=== PATIENT | female | born 1970 | race Caucasian/White ===

== ENCOUNTER → 2016-10-10 | Outpatient (REF) | payer OTHER ==
[2016-10-10 17:01] LABS: ALBUMIN 3.9 GM/DL (3.2-5.2); ALBUMIN/GLOBULIN RATIO 1.22 (1.00-1.93); ALKALINE PHOSPHATASE 106 U/L (45-117); ALT/SGPT 22 U/L (12-78); ANION GAP 6 MEQ/L (8-16); AST/SGOT 18 U/L (15-37); BILIRUBIN,TOTAL 0.4 MG/DL (0.2-1.0); BLOOD UREA NITROGEN 12 MG/DL (7-18); CALCIUM LEVEL 8.5 MG/DL (8.5-10.1); CARBON DIOXIDE LEVEL 30 MEQ/L (21-32); CHLORIDE LEVEL 107 MEQ/L (98-107); CHOLESTEROL LEVEL 177 MG/DL (<200); CREATININE FOR GFR 0.83 MG/DL (0.55-1.02); GLOMERULAR FILTRATION RATE > 60.0 (>58); GLUCOSE, FASTING 89 MG/DL (70-105); POTASSIUM SERUM 4.5 MEQ/L (3.5-5.1); SODIUM LEVEL 143 MEQ/L (136-145); TOTAL PROTEIN 7.1 GM/DL (6.4-8.2); TRIGLYCERIDES LEVEL 48 MG/DL (<150)
[2016-10-10 17:09] LABS: BASO % 0.8 % (0.0-1.0); EOS # 0.1 K/mm3 (0.0-0.50); EOS % 3.5 % (0.0-3.0); LARGE UNSTAINED CELL # 0.1 K/mm3 (0.0-0.4); LARGE UNSTAINED CELL % 2.1 % (0.0-4.0); LYMPH # 1.1 K/mm3 (1.5-4.5); LYMPH % 28.6 % (24.0-44.0); MEAN CORPUSCULAR HEMOGLOBIN 30.3 pg (27.0-33.0); MEAN CORPUSCULAR HGB CONC 32.5 g/dl (32.0-36.5); MONO # 0.2 K/mm3 (0.0-0.8); MONO % 5.3 % (0.0-5.0); NEUTROPHILS # 2.3 K/mm3 (1.8-7.7); NEUTROPHILS % 59.7 % (36.0-66.0); PLATELET COUNT, AUTOMATED 234 k/mm3 (150-450); RED CELL DISTRIBUTION WIDTH 11.8 % (11.5-14.5); WHITE BLOOD COUNT 3.8 K/mm3 (4.0-10.0)
== END ==
LOC: M LAB REF 12:23
PROVIDERS: ATTEND Family Medicine
DX: Z00.00 Encounter for general adult medical examination without abnormal findings (principal)

== ENCOUNTER → 2017-02-22 | Outpatient (CLI) | payer OTHER ==
--- NOTE | 2017-02-22 09:43 | REPMRS ---
Patient History The patient states she had a clinical breast exam in Patient is postmenopausal. No known family history of cancer. Digital Woman Screen Mammo: February 22, 2017 - Exam #: [id number] Bilateral CC and MLO view(s) were taken. Technologist: Edel Martinez, Technologist Prior study comparison: March 13, 2015, digital woman screen mammo performed at [facility]. FINDINGS: The breast tissue is heterogeneously dense. This may lower the sensitivity of mammography. There has been no change in the appearance of the mammogram from the prior studies. There is a moderate amount of residual fibroglandular tissue which is fairly symmetric. There is no interval development of dominant mass, architectural distortion, or clustered microcalcification typical of malignancy. There are scattered, small, benign calcifications of doubtful clinical significance. No significant changes when compared with prior studies. ASSESSMENT: BI-RADS/ACR category 2 mammogram. Benign finding(s). Recommendation Routine screening mammogram in 1 year (for women over age 40). This mammogram was interpreted with the aid of an FDA-approved computer-aided dectection system. A. Negative x-ray reports should not delay biopsy if a dominant or clinically suspicious mass is present. B. Four to eight percent of cancers are not identified by mammography. C. Adenosis and dense breast may obscure an underlying neoplasm. Electronically Signed By: Yuriy Dumas MD 02/22/17 0943
== END ==
LOC: M WHC 08:19
PROVIDERS: ATTEND Nurse Practitioner Women's Health
DX: Z12.31 Encounter for screening mammogram for malignant neoplasm of breast (principal); R92.8 Other abnormal and inconclusive findings on diagnostic imaging of breast; Z78.0 Asymptomatic menopausal state

== ENCOUNTER → 2017-06-07 | Outpatient (REF) | payer OTHER ==
[2017-06-07 13:39] LABS: FREE T4 1.5 NG/DL (0.76-1.46)
== END ==
LOC: M SFHCADAM 09:36
PROVIDERS: ATTEND Family Medicine
DX: F32.89 Other specified depressive episodes (principal)

== ENCOUNTER → 2017-10-29 | Outpatient (REF) | payer OTHER ==
[2017-10-29 12:50] LABS: ALBUMIN 3.7 GM/DL (3.2-5.2); ALBUMIN/GLOBULIN RATIO 1.09 (1.00-1.93); ALKALINE PHOSPHATASE 87 U/L (45-117); ALT/SGPT 22 U/L (12-78); ANION GAP 7 MEQ/L (8-16); AST/SGOT 19 U/L (7-37); BILIRUBIN,TOTAL 0.4 MG/DL (0.2-1.0); BLOOD UREA NITROGEN 13 MG/DL (7-18); CALCIUM LEVEL 8.5 MG/DL (8.5-10.1); CARBON DIOXIDE LEVEL 28 MEQ/L (21-32); CHLORIDE LEVEL 105 MEQ/L (98-107); CREATININE FOR GFR 0.77 MG/DL (0.55-1.30); FREE T4 1.25 NG/DL (0.76-1.46); GLOMERULAR FILTRATION RATE > 60.0 (>58); GLUCOSE, FASTING 74 MG/DL (70-100); POTASSIUM SERUM 3.7 MEQ/L (3.5-5.1); SODIUM LEVEL 140 MEQ/L (136-145); THYROID STIMULATING HORMONE 0.782 uIU/ML (0.358-3.740); TOTAL PROTEIN 7.1 GM/DL (6.4-8.2)
== END ==
LOC: M SFHCADAM 12:02
DX: Z00.00 Encounter for general adult medical examination without abnormal findings (principal)

== ENCOUNTER → 2017-12-13 | Outpatient (CLI) | payer OTHER | LOC: M RAD 14:28 | DX: N63.20 Unspecified lump in the left breast, unspecified quadrant (principal) | CPT/HCPCS: 77065 ==

== ENCOUNTER → 2018-05-24 | Outpatient (CLI) | payer OTHER | LOC: M RAD 15:46 | DX: N60.02 Solitary cyst of left breast (principal) | CPT/HCPCS: 76642 ==

== ENCOUNTER → 2019-02-09 | Outpatient (CLI) | payer OTHER ==
--- NOTE | 2019-02-09 10:50 | REP ---
Left knee five views: There are no comparisons. There is no fracture or dislocation. There is no joint effusion. The joint spaces are unremarkable. The skeletal structures appear demineralized, somewhat unusual for patient age. Consider bone densitometry study for confirmation. Impression: Essentially negative left knee except for demineralization, somewhat unusual for patient age. Consider bone densitometry for confirmation. Electronically Signed by Jericho Sanz MD 02/09/2019 10:42 A
== END ==
LOC: M ADAMS 09:36
PROVIDERS: ATTEND Family Medicine
DX: S89.92XD Unspecified injury of left lower leg, subsequent encounter (principal); X58.XXXD Exposure to other specified factors, subsequent encounter

== ENCOUNTER → 2019-03-07 | Outpatient (REF) | payer OTHER ==
[2019-03-07 12:33] LABS: BASO # 0.1 10^3/uL (0.0-0.2); EOS # 0.1 10^3/uL (0.0-0.50); EOS % 2.1 % (0.0-3.0); HEMOGLOBIN 12.4 g/dl (12.0-15.5); LYMPH # 1.4 10^3/uL (1.5-4.5); LYMPH % 29.1 % (24.0-44.0); MEAN CORPUSCULAR HEMOGLOBIN 30.6 pg (27.0-33.0); MEAN CORPUSCULAR HGB CONC 31.8 g/dl (32.0-36.5); MEAN CORPUSCULAR VOLUME 96.3 fl (80.0-96.0); MONO # 0.4 10^3/uL (0.0-0.8); MONO % 7.8 % (0.0-5.0); NEUTROPHILS # 2.9 10^3/uL (1.8-7.7); NEUTROPHILS % 59.8 % (36.0-66.0); PLATELET COUNT, AUTOMATED 235 10^3/uL (150-450); RED BLOOD COUNT 4.05 10^6/uL (4.00-5.40); WHITE BLOOD COUNT 4.8 10^3/uL (4.0-10.0)
[2019-03-07 12:52] LABS: ALBUMIN 3.6 GM/DL (3.2-5.2); ALT/SGPT 27 U/L (12-78); BILIRUBIN,TOTAL 0.4 MG/DL (0.2-1.0); BLOOD UREA NITROGEN 14 MG/DL (7-18); CARBON DIOXIDE LEVEL 28 MEQ/L (21-32); CHLORIDE LEVEL 106 MEQ/L (98-107); CHOLESTEROL LEVEL 194 MG/DL (<200); CHOLESTEROL RISK RATIO 3.129 (<5); CREATININE FOR GFR 0.77 MG/DL (0.55-1.30); GLOMERULAR FILTRATION RATE > 60.0 (>58); GLUCOSE, FASTING 83 MG/DL (70-100); HDL CHOLESTEROL 62 MG/DL (>40); LDL CHOLESTEROL 120 MG/DL (<100); NON-HDL-C 132 MG/DL; POTASSIUM SERUM 4.2 MEQ/L (3.5-5.1); SODIUM LEVEL 140 MEQ/L (136-145); TOTAL PROTEIN 6.9 GM/DL (6.4-8.2); TRIGLYCERIDES LEVEL 59 MG/DL (<150)
== END ==
LOC: M SFHCADAM 08:06
PROVIDERS: ATTEND Family Medicine
DX: Z00.00 Encounter for general adult medical examination without abnormal findings (principal)

== ENCOUNTER → 2019-03-30 | Outpatient (CLI) | payer OTHER ==
--- NOTE | 2019-03-31 08:30 | REP ---
MAXILLOFACIAL CT STUDY WITHOUT CONTRAST: HISTORY: Chronic maxillary sinusitis. No comparison imaging. FINDINGS: The sphenoid, ethmoid, frontal, and maxillary sinuses are bilaterally clear. No mucosal changes. Ostiomeatal complex units are patent bilaterally. Nasal turbinate soft tissues are unremarkable and symmetric. The bony nasal septum is essentially midline. No intraorbital or intracranial abnormality is seen. The nasal ethmoid recesses appear patent. Bony orbital and sinus margins are intact. Mastoid aeration is normal and symmetric. IMPRESSION: Negative maxillofacial CT study. Electronically Signed by Dannie Henderson MD 03/31/2019 08:40 A
== END ==
LOC: M RAD 17:00
PROVIDERS: ATTEND Specialist
DX: J32.0 Chronic maxillary sinusitis (principal)

== ENCOUNTER → 2019-04-01 | Outpatient (CLI) | payer OTHER ==
--- NOTE | 2019-04-03 12:21 | REP ---
MRA of the brain without contrast Indication: Tinnitus. Comparison: None Technique: 3D time of flight MR angiogram of the [place] was performed without contrast. MIP images of the vessels were obtained including tumble and spin MIP imaging. Findings: There is antegrade flow within the distal ICAs and proximal MCAs and ACAs, the distal vertebral arteries, basilar artery and proximal generator switchboard operator. There is no evidence of cerebrovascular occlusion or aneurysmal formation. Impression: No cerebrovascular occlusion or aneurysmal formation. Electronically Signed by Marguerite Carbajal MD 04/03/2019 09:21 A
== END ==
LOC: M RAD 10:36
PROVIDERS: ATTEND Specialist
DX: H93.A1 Pulsatile tinnitus, right ear (principal)

== ENCOUNTER 2020-08-25 19:08 | Emergency (ER) | payer OTHER ==
[~2020-08-25] VITALS: Ht 172.7 cm; Wt 72.1 kg
--- OUTSIDE RECORDS SUMMARY | 2020-08-25 19:15 | CCD ---
Author Author [facility] Organization [facility] Address Unknown Phone Unavailable Care Team Providers Care Fraud Manager Name Role Phone Crystal Zaidi Unavailable Unavailable Crystal Zaidi PA Unavailable Unavailable Crystal Zaidi PA Unavailable Unavailable Crystal Zaidi PA Unavailable Unavailable Crystal Zaidi PA Unavailable Unavailable ZaidiCrystal herrera PA Unavailable Unavailable Crystal Zaidi PA Unavailable Unavailable Crystal Zaidi PA Unavailable Unavailable Crystal Zaidi PA Unavailable Unavailable Crystal Zaidi PA Unavailable Unavailable Madina Akhtar MD Unavailable Unavailable Madina Akhtar MD Unavailable Unavailable Madina Akhtar MD Unavailable Unavailable Madina Akhtar MD Unavailable Unavailable Madina Akhtar MD Unavailable Unavailable Madina Akhtar MD Unavailable Unavailable Madina Akhtar MD Unavailable Unavailable Madina Akhtar MD Unavailable Unavailable Madina Akhtar MD Unavailable Unavailable Madina Akhtar MD Unavailable Unavailable Madina Akhtar MD Unavailable Unavailable Madina Akhtar MD Unavailable Unavailable Madina Akhtar MD Unavailable Unavailable Madina Akhtar MD Unavailable Unavailable Madina Akhtar MD Unavailable Unavailable Madina Akhtar MD Unavailable Unavailable Madina Akhtar MD Unavailable Unavailable Al Mudamgha, A Ali MD Unavailable Unavailable Al Mudamgha, A Ali MD Unavailable Unavailable Al Mudamgha, A Ali MD Unavailable Unavailable Al Mudamgha, A Ali MD Unavailable Unavailable Al Mudamgha, A Ali MD Unavailable Unavailable Al Mudamgha, A Ali MD Unavailable Unavailable Al Mudamgha, A Ali MD Unavailable Unavailable Al Mudamgha, A Ali MD Unavailable Unavailable Al Mudamgha, A Ali MD Unavailable Unavailable Al Mudamgha, A Ali MD Unavailable Unavailable Al Mudamgha, A Ali MD Unavailable Unavailable Al Mudamgha, A Ali MD Unavailable Unavailable Al Mudamgha, A Ali MD Unavailable Unavailable Al Mudamgha, A Ali MD Unavailable Unavailable Al Mudamgha, A Ali MD Unavailable Unavailable Al Mudamgha, A Ali MD Unavailable Unavailable Al Mudamgha, A Ali MD Unavailable Unavailable Al Mudamgha, A Ali MD Unavailable Unavailable Al Mudamgha, A Ali MD Unavailable Unavailable Al Mudamgha, A Ali MD Unavailable Unavailable Al Mudamgha, A Ali MD Unavailable Unavailable Al Mudamgha, A Ali MD Unavailable Unavailable Al Mudamgha, A Ali MD Unavailable Unavailable Al Mudamgha, A Ali MD Unavailable Unavailable Al Mudamgha, A Ali MD Unavailable Unavailable Al Mudamgha, A Ali MD Unavailable Unavailable Al Mudamgha, A Ali MD Unavailable Unavailable Al Mudamgha, A Ali MD Unavailable Unavailable Al Mudamgha, A Ali MD Unavailable Unavailable Al Mudamgha, A Ali MD Unavailable Unavailable Al Mudamgha, A Ali MD Unavailable Unavailable Al Mudamgha, A Ali MD Unavailable Unavailable Al Mudamgha, A Ali MD Unavailable Unavailable Al Mudamgha, A Ali MD Unavailable Unavailable Al Mudamgha, A Ali MD Unavailable Unavailable Al Mudamgha, A Ali MD Unavailable Unavailable Al Mudamgha, A Ali MD Unavailable Unavailable Al Mudamgha, A Ali MD Unavailable Unavailable Al Mudamgha, A Ali MD Unavailable Unavailable Al Mudamgha, A Ali MD Unavailable Unavailable Al Mudamgha, A Ali MD Unavailable Unavailable Al Mudamgha, A Ali MD Unavailable Unavailable Al Mudamgha, A Ali MD Unavailable Unavailable Al Mudamgha, A Ali MD Unavailable Unavailable Al Mudamgha, A Ali MD Unavailable Unavailable Al Mudamgha, A Ali MD Unavailable Unavailable Al Mudamgha, A Ali Unavailable Unavailable Al Mudamgha, A Ali MD Unavailable Unavailable Al Mudamgha, A Ali MD Unavailable Unavailable Al Mudamgha, A Ali MD Unavailable Unavailable Al Mudamgha, A Ali MD Unavailable Unavailable Al Mudamgha, A Ali MD Unavailable Unavailable Al Mudamgha, A Ali MD Unavailable Unavailable Al Mudamgha, A Ali MD Unavailable Unavailable Al Mudamgha, A Ali MD Unavailable Unavailable Al Mudamgha, A Ali MD Unavailable Unavailable Al Mudamgha, A Ali MD Unavailable Unavailable Al Mudamgha, A Ali MD Unavailable Unavailable Al Mudamgha, A Ali MD Unavailable Unavailable Al Mudamgha, A Ali MD Unavailable Unavailable Al Mudamgha, A Ali MD Unavailable Unavailable Al Mudamgha, A Ali MD Unavailable Unavailable Al Mudamgha, A Ali MD Unavailable Unavailable Re-disclosure Warning The records that you are about to access may contain information from federally-assisted alcohol or drug abuse programs. If such information is present, then the following federally mandated warning applies: This information has been disclosed to you from records protected by federal confidentiality rules (42 CFR part 2). The federal rules prohibit you from making any further disclosure of this information unless further disclosure is expressly permitted by the written consent of the person to whom it pertains or as otherwise permitted by 42 CFR part 2. A general authorization for the release of medical or other information is NOT sufficient for this purpose. The Federal rules restrict any use of the information to criminally investigate or prosecute any alcohol or drug abuse patient.The records that you are about to access may contain highly sensitive health information, the redisclosure of which is protected by Article 27-F of the [facility] Public Health law. If you continue you may have access to information: Regarding HIV / AIDS; Provided by facilities licensed or operated by the [facility] Office of Mental Health; or Provided by the [facility] Office for People With Developmental Disabilities. If such information is present, then the following [facility] mandated warning applies: This information has been disclosed to you from confidential records which are protected by state law. State law prohibits you from making any further disclosure of this information without the specific written consent of the person to whom it pertains, or as otherwise permitted by law. Any unauthorized further disclosure in violation of state law may result in a fine or usp sentence or both. A general authorization for the release of medical or other information is NOT sufficient authorization for further disc losure. Family History Family Member Name Family Member Gender Family Member Status Date o f Status Description Data Source(s) Unknown Unknown Problem [facility] ([facility]) Unknown Unknown Problem [facility] ([employer] [employer]) Encounters Encounter Providers Location Date Indications Data Source(s ) Outpatient Attender: Rajeev Akhtar MDAdmitter: Rajeev Turner MD ES1-[id number].CVAU 08/02/2020 09:53:00 AM EST - 08/02/2020 05:13:00 PM [facility] Patient discharged. Outpatient Referrer: Rajeev Akhtar MD MOB-MOB.PAT 10/2020 09:05:47 AM [facility] - 07/29/2020 09:05:50 AM [facility] Outpatient Attender: Rajeev Akhtar MD BF-BF 07/03/2020 07:36:0 2 AM [facility] Outpatient [id number] 06/25/2020 11:01:38 AM [facility] Outpatient Attender: Pam black 03/26/2020 07:30:00 PM EDT [facility] ([facility] Outpatient [facility] [address] 02/05/2020 12:00:00 AM EDT eCW1 ([facility]) [address] [address] 2019 12:00:00 AM EDT eCW1 ([facility]) [address] [address] 09/04/2019 12:00:00 AM EST eCW1 ([facility]) [address] [address] 08/03/2019 12:00:00 AM EST eCW1 ([facility]) Medications Medication Brand Name Start Date Product Form Dose Route Admi nistrative Instructions Pharmacy Instructions Status Indications Reaction Description Data Source(s) normal saline flush 0.9 % injection 3 mL [id number] 08/02/2020 02:00:00 PM EST 3 mL Intravenous active 3 mL , Intravenous, Every 8 hours (scheduled), First dose on Wed08/02/20 at 1400, Pre-op
Rapid push positive pressure flushing shall be performed with a 10 cc normal saline syringe to check the PATENCY of a PIV site prior to any infusion therapy initiation unless resistance is met.
[facility] Medication administered onsite Acetaminophen 325 MG Oral Tablet acetaminophen (TYLENO L) 325 MG tablet 650 mg acetaminophen (TYLENOL) 325 MG tablet 650 mg 08/02/2020 01:15:35 PM EST 650 mg Oral active 650 mg, Or al, Every 4 hours PRN, mild pain (1-3), Starting Wed08/02/20 at 1315
"Maximum dose of acetaminophen is 4,000 mg from all sources in 24 hours."
[facility] Medication administered onsite ondansetron (ZOFRAN) injection 63537-247-29 08/02/2020 12:25:01 PM EST active As needed, Starting Wed at 1225, Intra-Procedure [facility] Medication administered onsite protamine injection [id number] 08/02/2020 12:13:09 PM EST active As needed, Starting Wed08/02/20 at 1213, Intra-Procedur e [facility] Medication administered onsite 1 ML heparin sodium, porcine 1000 UNT/ML Injection hep tiki (porcine) injection heparin (porcine) injection 08/02/2020 11:30:41 AM EST active As needed, Starting Wed08/02/20 at 1130, Intra-Procedure [facility] Medication administered onsite lidocaine (PF) (XYLOCAINE-MPF) 1 % injection [id number] 02/2021 10:55:26 AM EST active As needed, Start ing Wed08/02/20 at 1055, Intra-Procedure [facility] Medication administered onsite 2 ML Midazolam 1 MG/ML Injection midazolam (VERSED) in jection midazolam (VERSED) injection 08/02/2020 10:46:15 AM EST active As needed, Starting Wed08/02/20 at 1046, Intra-Procedure [facility] Medication administered onsite fentaNYL Citrate (PF) (SUBLIMAZE) injection [id number] 08/02/2020 10:46:02 AM EST active As neede d, Starting Wed08/02/20 at 1046, Intra-Procedure [facility] Medication administered onsite 25 mg 07/04/2020 12:00:00 AM EST tablet extended release 24 hr 30 TAKE ONE TABLET BY MOUTH EVERY DAY TAKE ONE TABLET BY MOUTH EVERY DAY SOLD: 07/04/2020 [facility] 24 HR metoprolol succinate 25 MG Extende d Release Oral Tablet metoprolol succinate (TOPROL-XL) 25 MG 24 hr tablet metoprolol succinate (TOPROL-XL) 25 MG 24 hr tablet 07/03/2020 12:00:00 AM EST 25 mg Oral abort ed Take 1 tablet (25 mg total) by mouth daily [facility] . UNIT 03/20/2020 12:00:00 AM EDT Injectable 1 US E DIRECTED USE DIRECTED SOLD: 03/20/2020 [facility] 60 mcg (15 mcg x 4)/0.5 mL 03/20/2020 12:00:00 AM EDT syring e 0 INJECT DIRECTED INJECT DIRECTED SOLD: 03/20/2020 [facility] 50 mg 09/04/2019 12:00:00 AM EST tablet 30 TAKE ONE TABLET BY MOUTH EVERY DAY TAKE ONE TABLET BY MOUTH EVERY DAY SOLD: 09/04/2019 [facility] 50 mg 09/04/2019 12:00:00 AM EST tablet 30 TAKE ONE TABLET BY MOUTH EVERY DAY TAKE ONE TABLET BY MOUTH EVERY DAY SOLD: 11/13/2019 [facility] 50 mg 09/04/2019 12:00:00 AM EST tablet 30 TAKE ONE TABLET BY MOUTH EVERY DAY TAKE ONE TABLET BY MOUTH EVERY DAY SOLD: 10/13/2019 [facility] Sertraline 25 MG Oral Tablet Sertraline HCl 25 MG Sertraline HCl 25 MG 08/03/2019 12:00:00 AM EST active 1 tablet eCW1 ([facility]) 25 mg 08/03/2019 12:00:00 AM EST tablet 30 TAKE ONE TABLET BY MOUTH EVERY DAY WITH 50MG TABLET TAKE ONE TABLET BY MOUTH EVERY DAY WITH 50MG TABLET SO LD: 08/06/2019 [facility] 25 mg 08/03/2019 12:00:00 AM EST tablet 30 TAKE ONE TABLET BY MOUTH EVERY DAY WITH 50MG TABLET TAKE ONE TABLET BY MOUTH EVERY DAY WITH 50MG TABLET SO LD: 09/04/2019 [facility] Amoxicillin 875 MG / Clavulanate 125 MG Oral Tablet Amoxicillin-Pot Clavulanate 875-125 MG Amoxicillin-Pot Clavulanate 875-125 MG 08/03/2019 12:00:00 AM ES T suspended 1 tablet eCW1 ([facility]) Amoxicillin 875 MG / Clavulanate 125 MG Oral Tablet Amoxicillin-Pot Clavulanate 875-125 MG Amoxicillin-Pot Clavulanate 875-125 MG 08/03/2019 12:00:00 AM ES T active 1 tablet eCW1 ([facility]) 25 mg 08/03/2019 12:00:00 AM EST tablet 30 TAKE ONE TABLET BY MOUTH EVERY DAY WITH 50MG TABLET TAKE ONE TABLET BY MOUTH EVERY DAY WITH 50MG TABLET SO LD: 10/04/2019 [facility] Sertraline 25 MG Oral Tablet Sertraline HCl 25 MG Sertraline HCl 25 MG 08/03/2019 12:00:00 AM EST 1.0 {tablet} suspende d Sertraline HCl 25 MG eCW1 ([facility]) Amoxicillin 875 MG / Clavulanate 125 MG Oral Tablet Amoxicillin-Pot Clavulanate 875-125 MG Amoxicillin-Pot Clavulanate 875-125 MG 08/03/2019 12:00:00 AM ES T 1.0 {tablet} suspended Amoxicillin-Pot C lavulanate 875-125 MG eCW1 ([facility]) 875-125 mg 08/03/2019 12:00:00 AM EST tablet 14 TAKE ONE TABLET BY MOUTH EVERY 12 HOURS FOR 7 DAYS TAKE ONE TABLET BY MOUTH EVERY 12 HOURS FOR 7 DAYS SOLD: 08/06/2019 [facility] Sertraline 25 MG Oral Tablet Sertraline HCl 25 MG Sertraline HCl 25 MG 08/03/2019 12:00:00 AM EST active 1 tablet eCW1 ([facility]) 50 mg 05/16/2019 12:00:00 AM EDT tablet 30 TAKE ONE TABLET BY MOUTH EVERY DAY TAKE ONE TABLET BY MOUTH EVERY DAY SOLD: 08/15/2019 [facility] 50 mg 05/16/2019 12:00:00 AM EDT tablet 30 TAKE ONE TABLET BY MOUTH EVERY DAY TAKE ONE TABLET BY MOUTH EVERY DAY SOLD: 07/14/2019 [facility] Sertraline 25 MG Oral Tablet sertraline (ZOLOFT) 25 MG tablet sertraline (ZOLOFT) 25 MG tablet 08/01/2018 12:00:00 AM EST madina borted [facility] Sertraline 50 MG Oral Tablet sertraline (ZOLOFT) 50 MG tablet sertraline (ZOLOFT) 50 MG tablet 07/11/2018 12:00:00 AM EST 50 mg Oral aborted Take 50 mg by mouth daily [facility] Insurance Providers Payer name Policy type / Coverage type Policy ID Covered alliance party ID Covered alliance party's relationship to sandoval Policy Sadnoval Plan Information R [facility] [id number] SP [id number] UMR [id number] R [id number] Spo [id number] INSURANCE COVID-19 COVID Nereida C OVID INSURANCE COVID-19 [id number] UMR [id number] UMR [id number] Nereida [id number] UMR [id number] Nereida [id number] UMR O [id number] S [id number] [facility] [id number] ANSI-Commercial [id number] ANSI-Commercial [id number] ANSI-Commercial [id number] [facility] [id number] [facility] [id number] ANSI-Commercial [id number] ANSI-Commercial [id number] ANSI-Commercial [id number] [facility] (O) [id number] Self [id number] ANSI-Commercial [id number] ANSI-Commercial [id number] R [facility] [id number] HU2 [id number] r Commercial [id number] Self [id number] [employer] Commercial [id number] Self [id number] R [facility] [id number] HU2 [id number] [employer] [id number] HU2 [id number] ANSI-Commercial [id number] [employer] PPO O [id number] S [id number] [employer] [id number] HU2 [id number] Problems, Conditions, and Diagnoses Code Display Name Description Problem Type Effective Dates Data Source(s) I47.1 Supraventricular tachycardia Supraventricular tachycar lambert [id number] 07/11/2020 12:00:00 AM EST [facility] J32.0 [id number] Right maxillary sinusitis Problem 08/03/2019 12:00:00 AM EST eCW1 ([facility]) J32.0 [id number] Right maxillary sinusitis Problem 08/03/2019 12:00:00 AM EST eCW1 ([facility]) I47.1 Supraventricular tachycardia Supraventricular tachycar lambert Diagnosis 08/02/2020 09:53:00 AM EST [facility] U07.1 COVID-19 COVID-19 Diagnosis 07/29/2020 09:05:47 AM ES T [facility] Surgeries/Procedures Procedure Description Date Indications Data Source(s) MRI Upper Extremity Any Joint 08/14/2020 12:00:[address] [facility] ([facility]) CLOSED TX RADIAL HEAD/NECK FX W/O MANIPULATION 021 12:00:00 AM EST [facility] ([facility]) RADEX ELBOW COMPLETE MINIMUM 3 VIEWS 08/06/2020 12:00: 00 AM EST [facility] ([facility]) RADEX ELBOW COMPLETE MINIMUM 3 VIEWS 08/06/2020 12:00: 00 AM EST [facility] ([facility]) EP STUDY EP STUDY Routine 08/02/2020 12:22 PM EST Supraventricular tachycardia 08/02/2020 05:22:24 PM EST Supr aventricular tachycardia [facility] Supraventricular tachycardia POCT I-STAT BETA HCG POCT I-STAT BETA HCG Routine 08/02/2020 10:27 AM EST 08/02/2020 03:27:00 PM EST [facility] Results ID Date Data Source [id number] 08/02/2020 12:39:19 PM EST [facility] Name Value Range Interpretation Code Description Data Daphne rce(s) Supporting Document(s) &PDF [facility] [id number] 0b3 [file] [id number]== ID Date Data Source [id number] 08/02/2020 10:43:52 AM EST [facility]FORMATIONPatient [facility]N Name Date of Age Gend*PT [id number] Radha Fortune I 1970 49 years F HOPPT Location Admission Date/Time Visit ID Attending ProviderCV-[id number] 08/02/20 0953 --- Rajeev Reid MD([id number]) EPI ID CSN Admitting Provider [id number] Rajeev Smith MD([id number])H&P reviewed. The patient was examined and there are no changes to the H&P.Rajeev Smith MD10:43 AM Name Value Range Interpretation Code Description Data Daphne rce(s) Supporting Document(s) ID Date Data Source [id number] 08/02/2020 10:41:33 AM EST [facility] Name Value Range Interpretation Code Description Data Daphne rce(s) Supporting Document(s) POC [facility] <5.0 IU/L [facility] [place] INTERPRETATION:<5.0 NEGATIVE5.0- 25.0 INDETERMINATE>25.0 POSITIVELEVELS BETWEEN 5 AND 25 IU/L MAY INDICATEEARLY AND SHOULD BE REPEATED ZARINA BLOOD SAMPLE AFTER 48 HOURS.PERFORMED BY [facility] CLINICAL STAFF ID Date Data Source [id number] 07/29/2020 09:00:00 AM EST [facility] Name Value Range Interpretation Code Description Data Daphne rce(s) Supporting Document(s) SARS coronavirus 2 RNA [facility] This lab was ordered by [facility] and reported by [facility]. ID Date Data Source [id number] 07/30/2020 08:07:42 PM EST [facility] Name Value Range Interpretation Code Description Data Daphne rce(s) Supporting Document(s) SARS-COV-2 [facility] Tiffany [facility] Not DetectedReference range: Not Detecte d This nucleic acid amplification test was developed and its performance characteristics determined by [employer] Nucleic acid amplification tests include PCR and TMA. This test has not been FDA cleared or approved. This test has been authorized by FDA under an Emergency Use Authorization (EUA). This test is only authorized for the duration of time the declaration that circumstances exist justifying the authorization of the emergency use of in vitro diagnostic tests for detection of SARS-CoV-2 virus and/or diagnosis of COVID-19 infection under section 564(b)(1) of the Act, 21 U.S.C. 360bbb-3(b) (1), unless the authorization is terminated or revoked sooner. When diagnostic testing is negative, the possibility of a false negative result should be considered in the context of a patient's recent exposures and the presence of clinical signs and symptoms consistent with COVID- 19. An individual without symptoms of COVID- 19 and who is not shedding SARS -CoV-2 virus would expect to have a negative (not detected) result in this assay. Performed At: [facility] [address] [place], [place] [id number] Galen Honeycutt PhD Ph:[phone] ID Date Data Source [id number] 07/03/2020 10:56:51 AM EST [facility] NT INFORMATIONPatient MRN Name Date of Age Gend*PT [id number] Radha Fortune 1970 49 years F ---PT Location Admission Date/Time Visit ID Attending Provider --- --- --- --- EPI ID CSN Admitting Provider [id number] ---[facility] [id number] [facility], [address] (First Floor)[place], [place] [address]Cy.: Fax: Iatient: Radha Fortune : 1970Date: 07/03/20CARDIOLOGY ELECTROPHYSIOLOGY TELEMEDICINE CONSULTPatient was identified by name and date of .Verbal consent was obtained from the patient for this telemedicine visit.Patient is aware of the risks, limitations, and benefits of a telemedicinevisit.This telemedicine assessment was conducted remotely with the assistance of[employer] communication technology. Telephone Only Codes [id number]: 21-30 minutesof medical discussion: Telephone Only .Subjective:I was asked by Dr. Ogden to consult on this 49 years female with SVTHISTORY OF PRESENT ILLNESS: The patient is a 49-year-old female with a historyof SVT who I apparently evaluated 20 years ago. At that time she had documentedSVT treated with adenosine. Approximately 10 years ago the patient tells me shesaw me again because she was having intermittent PACs. Recently however hertachycardia has significantly worsened to the point now where she has suddenonset sudden offset palpitations associated with some mild near syncope whichcan last for more than an hour. In the past she was able to terminate thesewith vagal maneuvers. She cannot any longer. She also has frequent episodes of"skips ". She denies any syncope. She denies any chest pain today. She deniesany shortness of breath or dyspnea on exertion.Past Medical History:Diagnosis Date Depression SVT (supraventricular tachycardia)FAMILY HISTORY: family history includes Diabetes in her mother; Heart disease inher father; Hypertension in her father; Stomach cancer in her paternalgrandfather.SOCIAL HISTORY: reports that she has never smoked. She has never used smokelesstobacco. She reports that she does not drink alcohol or use drugs.REVIEW OF SYSTEMS: Constitutional: Denies fatigue. Denies fever, chills, weightloss or gain. Eyes: Denies blindness. Cardiovascular: Denies chest pain orpalpitations. Respiratory: Denies shortness of breath and dyspnea on exertion.GI: Denies abdominal pain, nausea or vomiting. : Denies dysuria or hematuria.Musculoskeletal: Negative lower extremity edema. Integumentary: Denies rash.Neurologic: Denies seizures. Psychiatric: Denies depression or anxiety.Hematologic: Denies anemia.Current Outpatient Medications: acetaminophen (TYLENOL) 325 MG tablet, Take 650 mg by mouth every 6 (six)hours as needed for pain, Disp: , Rfl: DAILY GWEN (THERAGRAN) per tablet, Take 1 tablet by mouth daily, Disp: , Rfl: ibuprofen (ADVIL,MOTRIN) 200 MG tablet, Take 200 mg by mouth every 6 (six)hours as needed for pain, Disp: , Rfl: sertraline (ZOLOFT) 25 MG tablet, , Disp: , Rfl: sertraline (ZOLOFT) 50 MG tablet, Take 50 mg by mouth daily, Disp: , Rfl: 1ALLERGIES: has No Known Drug Allergies.PREVIOUSLY USED ANTI ARRHYTHMIC DRUGS: NonePOORLY TOLERATED MEDICATIONS: NoneObjective:PHYSICAL EXAMINATION: Deferred due to Telemedicine encounterEKG: Deferred due to telemedicine encounter.Assessment/Plan:ASSESSMENT/PLAN: This is a 49 years female With a history of documented SVT. Ihad a long discussion with the patient regarding the anatomical andphysiological basis of AV node reentry, ortho draw make AV reciprocatingtachycardias, and focal atrial tachycardias. Based on the age of onset there isan 80% chance the patient's tachycardia represents typical AVNRT, a 15% chancethis represents an Orthodromic AVRT utilizing a concealed accessory pathway, virgil 5% chance this represents a focal atrial tachycardia. We discussed clinicalobservation with no therapy. I explained to the patient that the naturalhistory of SVTs for worsening of symptoms over the course of a lifetime. Wediscussed medical therapy. The suppression rates for digoxin, beta-blockers,calcium channel blockers, 1A, 1C, and class 3 antiarrhythmic drugs wasdiscussed. In addition the side effects for these agents was also explained.The risk for ventricular proarrhythmia with medical therapy was also discussed.We also discussed EP guided therapy. In my opinion EP testing would bepreferable as this would allow for a definitive diagnosis as well as for apotential cure. The ablation procedure was explained in detail. The risksincluding but not limited to vascular injury, perforation, pneumothorax,tamponade, complete heart block and were all explained.At this point the patient would like elective basis. In the interim I willstart her on metoprolol 25 mg at bedtime to give her some symptom reliefI have spent 30 minutes with the patient, counseling/coordinating the patient'scare. I discussed the diagnosis of SVT and discussed Management option risksand benefitsFollow Up ablationSignature: Rajeev Reid MD, [facility], RSCardiac Electrophysiology and Arrhythmia ServiceDate: July 03, 2020Time: 10:45 AMThis document or parts of this document, were dictated using [employer]. A reasonable attempt at proofreading has been made to minimize errors.Please call with any questions or corrections. Name Value Range Interpretation Code Description Data Daphne rce(s) Supporting Document(s) Procedure Social History Code Duration Value Status Description Data Source(s ) Alcohol intake 08/02/2020 12:00:00 AM EST No completed [facility] Smoking 08/02/2020 12:00:00 AM EST Never smoker completed Never [facility] Alcohol intake 07/02/2020 12:00:00 AM EST No completed [facility] Smoking 07/02/2020 12:00:00 AM EST Never smoker completed Never [facility] Smoking 02/05/2020 12:00:00 AM EDT Never Smoker completed Never [facility] eCW1 ([facility]) Vital Signs ID Date Data Source UNK Name Value Range Interpretation Code Description Data Source(s) Body temperature 36.39 Rita 36.39 Rita [facility] Heart rate 73 /min 73 /min [facility] Diastolic blood pressure 78 mm[Hg] 78 mm[Hg] [facility] Systolic blood pressure 112 mm[Hg] 112 mm[Hg] [facility] Oxygen saturation in Arterial blood by Pulse oximetry 98 % 98 % [facility] Respiratory rate 18 /min 18 /min [facility] Body mass index (BMI) [Ratio] 22.81 kg/m2 22.81 kg/m2 [facility] Body weight 68.04 kg 68.04 kg [facility] Body height 172.7 cm 172.7 cm [facility] Diastolic blood pressure 68 mm[Hg] 68 mm[Hg] eCW1 ([facility]) Systolic blood pressure 112 mm[Hg] 112 mm[Hg] e CW1 ([facility]) Body temperature 97.2 [degF] 97.2 [degF] eCW1 ( [facility]) Respiratory rate 18 /min 18 /min eCW1 ([facility]) Heart rate 91 /min 91 /min eCW1 ([facility]) Body mass index (BMI) [Ratio] 26.24 kg/m2 26.24 kg/m2 eCW1 ([facility]) Body height 68 [in_i] 68 [in_i] eCW1 ([facility]) Body weight 172.6 [lb_av] 172.6 [lb_av] eCW1 ([facility]) Diastolic blood pressure 68 mm[Hg] 68 mm[Hg] eCW1 ([facility]) Systolic blood pressure 114 mm[Hg] 114 mm[Hg] e CW1 ([facility]) Body temperature 97 [degF] 97 [degF] eCW1 ([facility]) Respiratory rate 18 /min 18 /min eCW1 ([facility]) Heart rate 83 /min 83 /min eCW1 ([facility]) Body mass index (BMI) [Ratio] 27.15 kg/m2 27.15 kg/m2 W1 ([facility]) Body height 68 [in_us] 68 [in_us] eCW1 ([facility]) Body weight Measured 178.6 [lb_av] 178.6 [lb_av ] eCW1 ([facility]) Diastolic blood pressure 64 mm[Hg] 64 mm[Hg] eCW1 ([facility]) Systolic blood pressure 114 mm[Hg] 114 mm[Hg] e CW1 ([facility]) Body temperature 97 [degF] 97 [degF] eCW1 ([facility]) Respiratory rate 18 /min 18 /min eCW1 ([facility]) Heart rate 91 /min 91 /min eCW1 ([facility]) Body mass index (BMI) [Ratio] 26.24 kg/m2 26.24 kg/m2 eCW1 ([facility]) Body height 68 [in_us] 68 [in_us] eCW1 ([facility]) Body weight Measured 172.6 [lb_av] 172.6 [lb_av ] eCW1 ([facility]) Patient Treatment Plan of Care Planned Activity Planned Date Details Description Data Source (s) 24 HR metoprolol succinate 25 MG Extended Release Oral Tablet 07/03/2020 12:00:00 AM EST [facility] Sertraline 25 MG Oral Tablet 08/03/2019 12:00:00 AM EST eCW1 ([facility]) Amoxicillin 875 MG / Clavulanate 125 MG Oral Tablet 08/03/19 12:00:00 AM EST eCW1 ([facility]) Sertraline 25 MG Oral Tablet 08/03/2019 12:00:00 AM EST eCW1 ([facility]) Sertraline 25 MG Oral Tablet 08/01/2018 12:00:00 AM EST [facility] Sertraline 50 MG Oral Tablet 07/11/2018 12:00:00 AM EST [facility]
--- OUTSIDE RECORDS SUMMARY | 2020-08-25 19:15 | CCD | Continuity of Care Document ---
Author Author Radha BARRON I Organization Unknown Address [address] [place] [address], [address] [place] [address] Phone [phone] Care Team Providers Care Shipping Lead Name Role Phone Carina Ferguson DO AUTM [phone] Problems Description No Information Available Social History Type Date Description Comments Sex Unknown ETOH Use Never used alcohol Tobacco Use Start: Unknown Patient has never smoked Allergies, Adverse Reactions, Alerts Description No Information Available Medications Active Medications SIG Qnty Indications Ordering Provide r Date Kenalog-40 40mg/ml Suspension 04-18-19 Ked/SM M22.42 DFloridalma Jules MD 019 Ibuprofen 200mg Tablets 2 tabs by mouth every 4 hours as needed Unknown 00 Sertraline HCL 50mg Tablets Unknown Metoprolol Succinate ER 25mg Tablets ER 24HR Take One Tablet By Mouth Every Day Unknow n Fluzone Quadrivalent 0.5ml Shelly Inject as Directed Unknown Immunizations Description No Information Available Vital Signs Date Vital Result Comment 03/14/2019 10:16am Body Temperature 97.8 F Height 68 inches 5'8" Weight 162.25 lb BMI (Body Mass Index) 24.7 kg/m2 Results Description No Information Available Procedures Date Code Description Status 08/06/2020 68522 X-Ray Elbow Complete Completed 08/06/2020 22097 FX Radial Head/Neck W/O Manipula tion Completed Medical Devices Description No Information Available Encounters Description No Information Available Assessments Date Code Description Provider 08/06/2020 S52.135A Nondisplaced fractur e of neck of left radius, initial encounter for closed fracture Kristen Condon PA-C Plan of Treatment Future Appointment(s):* 08/22/2020 3:15 pm - Kristen Condon PA-C at [place] 08/06/2020 - Kristen Condon PA-C* S52.135A Nondisplaced fracture of neck of left radius, initial encounter for closed fracture* Follow up:* [facility] f/u after MRI results with [facility]LF Functional Status Description No Information Available Mental Status Description No Information Available Referrals Refer to Dr Reason for Referral Status Appt Date Kristen Condon PA-C MRI APPROVED PER FARTUN Farley FOR MRI OF LEFT ELBOW ([id number]) TO MRI. DG Created [facility] [address] [place] [address] [phone]
--- OUTSIDE RECORDS SUMMARY | 2020-08-25 19:15 | CCD | Continuity of Care Document ---
Author Author ANDERSON Radha I Organization Unknown Address [address] [place] [address], [address] [place] [address] Phone [phone] Care Team Providers Care Manager Media Name Role Phone Carina Ferguson DO AUTM [phone] Problems Description No Information Available Social History [...] Information Available Procedures Date Code Description Status 08/14/2020 31207 MRI Upper Extremity Any Joint Co mpleted 08/06/2020 83508 X-Ray Elbow Complete Completed 08/06/2020 03292 FX Radial Head/Neck W/O Manipula tion Completed Medical Devices Description No Information Available Encounters Description No Information Available Assessments Date Code Description Provider 08/14/2020 S52.135A Nondisplaced fractur e of neck of left radius, initial encounter for closed fracture Gonzales Condon MD 08/14/2020 S52.135A Nondisplaced fractur e of neck of left radius, initial encounter for closed fracture MRI 08/06/2020 S52.135A Nondisplaced fractur e of neck of left radius, initial encounter for closed fracture Kristen Condon PA-C Plan of Treatment Future Appointment(s):* 08/22/2020 3:15 pm - Kristen Condon PA-C at [place] 08/06/2020 - Kristen Condon PA-C* S52.135A Nondisplaced [...] FARTUN Farley FOR MRI OF LEFT ELBOW ([id number]) TO MRI. DG Created [address] [facility] [address] [place] [address] [phone]
--- OUTSIDE RECORDS SUMMARY | 2020-08-25 19:15 | CCD | Continuity of Care Document ---
Author Author Radha FLORES PA-C Organization Unknown Address [address] [place] [address] Phone [phone] Care Team Providers Care Cloth Mercerizer Back Tender Name Role Phone Carina Ferguson DO AUTM [phone] Problems Description No Information Available Social History [...] Available Procedures Date Code Description Status 08/06/2020 02413 X-Ray Elbow Complete Completed 08/06/2020 06874 FX Radial Head/Neck W/O Manipula tion Completed Medical Devices Description No Information Available Encounters Description No Information Available Assessments Date Code Description Provider 08/06/2020 S52.135A Nondisplaced fractur e of neck of left radius, initial encounter for closed fracture Kristen Flores PA-C Plan of Treatment 08/06/2020 - Kristen Flores PA-C* S52.135A Nondisplaced fracture of neck of left radius, initial encounter for closed fracture* New Xrays:* MRI LT Elbow, Ordered: 08/06/20 * Follow up:* [facility] f/u after MRI results with KLF Functional Status Description No Information Available Mental Status Description No Information Available Referrals Description No Information Available
--- OUTSIDE RECORDS SUMMARY | 2020-08-25 19:15 | CCD | Continuity of Care Document ---
Author Author Radha FLORES I PA-C Organization Unknown Address [address] [place] [address] Phone [phone] Care Team Providers Care School Bus Driver/Teacher Assistant Name Role Phone Carina Ferguson DO AUTM [phone] Problems Description No Information Available Social History [...] Available Procedures Date Code Description Status 08/14/2020 32810 MRI Upper Extremity Any Joint Co mpleted 08/06/2020 31148 X-Ray Elbow Complete Completed 08/06/2020 99825 FX Radial Head/Neck W/O Manipula tion Completed Medical Devices Description No Information Available Encounters Description No Information Available Assessments Date Code Description Provider 08/14/2020 S52.135A Nondisplaced fractur e of neck of left radius, initial encounter for closed fracture MRI 08/06/2020 S52.135A Nondisplaced fractur e of neck of left radius, initial encounter for closed fracture Kristen Flores PA-C Plan of Treatment Future Appointment(s):* 08/22/2020 3:15 pm - Kristen Flores PA-C at [place] 08/06/2020 - Kristen Flores PA-C* S52.135A Nondisplaced fracture of neck of left radius, initial encounter for closed fracture* Follow up:* [facility] f/u after MRI results with KLF Functional Status Description No Information Available Mental Status Description No Information Available Referrals Refer to Dr Reason for Referral Status Appt Date Kristen Flores PA-C MRI APPROVED PER FARTUN Farley FOR MRI OF LEFT ELBOW ([id number]) TO MRI. DG Created [address] [facility] [address] [place] [address] [phone]
[2020-08-25] MEDS ORDERED: PSEU30TA85 PO (19:27)
[2020-08-25] MEDS ORDERED: IBUP200T45 PO (19:27)
--- NOTE | 2020-08-25 19:39 | REPVR ---
PROCEDURE INFORMATION: Exam: CT Head Without Contrast Exam date and time: 08/25/2020 7:19 PM Age: 49 years old Clinical indication: Other: Facial droop TECHNIQUE: Imaging protocol: Computed tomography of the head without contrast. Radiation optimization: All CT scans at this facility use at least one of these dose optimization techniques: automated exposure control; mA and/or kV adjustment per patient size (includes targeted exams where dose is matched to clinical indication); or iterative reconstruction. COMPARISON: MRA BRAIN W/O CONTRAST 04/01/2019 10:58 AM FINDINGS: Brain: The white-rodriguez differentiation is preserved demonstrating no acute territorial type infarct. No acute intracranial hemorrhage is visualized. No intracranial mass effect. There is no midline shift. Artifact limits evaluation of the oneil. Cerebral ventricles: No ventriculomegaly. Bones/joints: The calvarium demonstrates no evidence for a depressed fracture. Paranasal sinuses: Visualized sinuses are unremarkable. No fluid levels. Mastoid air cells: No mastoid effusion. Soft tissues: Unremarkable. IMPRESSION: 1. No acute intracranial hemorrhage or acute territorial type infarct. 2. If further evaluation is clinically indicated, an MRI of the brain is recommended. Electronically signed by: Kobe Bansal On 08/25/2020 19:38:43 PM
[2020-08-25] MEDS ORDERED: ISOVUE-370 76% 100ML VIAL As Ordered ONE (19:45)
[2020-08-25 19:51] LABS: BASO # 0.1 10^3/uL (0.0-0.2); EOS # 0.1 10^3/uL (0.0-0.5); EOS % 1.4 % (0.0-3.0); HEMATOCRIT 38.8 % (36.0-47.0); HEMOGLOBIN 12.1 g/dl (12.0-15.5); LYMPH # 1.9 10^3/uL (1.5-5.0); LYMPH % 29.8 % (24.0-44.0); MEAN CORPUSCULAR HEMOGLOBIN 29.6 pg (27.0-33.0); MEAN CORPUSCULAR HGB CONC 31.2 g/dl (32.0-36.5); MEAN CORPUSCULAR VOLUME 94.9 fl (80.0-96.0); MONO # 0.5 10^3/uL (0.0-0.8); MONO % 7.4 % (0.0-5.0); NEUTROPHILS # 3.7 10^3/uL (1.5-8.5); NEUTROPHILS % 60.1 % (36.0-66.0); PLATELET COUNT, AUTOMATED 263 10^3/uL (150-450); RED BLOOD COUNT 4.09 10^6/uL (4.00-5.40); WHITE BLOOD COUNT 6.2 10^3/uL (4.0-10.0)
--- OUTSIDE RECORDS SUMMARY | 2020-08-25 19:56 | CCD ---
Author Author [facility] Organization [facility] Address Unknown Phone Unavailable Care Team Providers Care Lighting Engineer Name Role Phone Crystal Zaidi Unavailable Unavailable ZaidiCrystal herrera PA Unavailable Unavailable Crystal Zaidi PA Unavailable Unavailable ZaidiCrystal PA Unavailable Unavailable ZaidiCrystal herrera PA Unavailable Unavailable ZaidiCrystal herrera PA Unavailable Unavailable ZaidiCrystal herrera PA Unavailable Unavailable Crystal Zaidi PA Unavailable Unavailable ZaidiCrystal PA Unavailable Unavailable Crystal Zaidi PA Unavailable Unavailable Yinka Akhtar MD Unavailable Unavailable Yinka Akhtar MD Unavailable Unavailable Yinka Akhtar MD Unavailable Unavailable Yinka Akhtar MD Unavailable Unavailable Yinka Akhtar MD Unavailable Unavailable Yinka Akhtar MD Unavailable Unavailable Yinka Akhtar MD Unavailable Unavailable Yinka Akhtar MD Unavailable Unavailable Yinka Akhtar MD Unavailable Unavailable Yinka Akhtar MD Unavailable Unavailable Yinka Akhtar MD Unavailable Unavailable Yinka Akhtar MD Unavailable Unavailable Yinka Akhtar MD Unavailable Unavailable Yinka Akhtar MD Unavailable Unavailable Yinka Akhtar MD Unavailable Unavailable Al Mudamgha, A [...] is protected by Article 27-F of the [facility] Public Health law. If you continue you may have access to information: Regarding HIV / AIDS; Provided by facilities licensed or operated by the [facility] Office of Mental Health; or Provided by the [facility] Office for People With Developmental Disabilities. If such information is present, then the following [facility] mandated warning applies: This information has been [...] law may result in a fine or intermediate sentence or both. A general authorization for the release of medical or other information is NOT sufficient authorization for further disc losure. Family History Family Member Name Family Member Gender Family Member Status Date o f Status Description Data Source(s) Unknown Unknown Problem [facility] ([facility]) Unknown Unknown Problem [facility] (Blair solorzano [employer]) Encounters Encounter Providers Location Date Indications Data Source(s ) Outpatient Attender: Rajeev Akhtar MDAdmitter: Rajeev Turner MD ES1-[email or web address].CVAU 08/02/2020 09:53:00 AM EST - 08/02/2020 05:13:00 PM [facility] Patient discharged. Outpatient Referrer: Rajeev Akhtar MD MOB-MOB.PAT 10/2020 09:05:47 AM EST - 07/29/2020 09:05:50 AM [facility] Outpatient Attender: Rajeev Akhtar MD BF-BF 07/03/2020 07:36:0 2 AM [facility] Outpatient [id number] 06/25/2020 11:01:38 AM [facility] Outpatient Attender: Pam black 03/26/2020 07:30:00 PM EDT [facility] ([facility] Outpatient [id number] [facility] [id number] 02/05/2020 12:00:00 AM EDT eCW1 ([facility]) [facility] [place] [address] [place] [id number] 2019 12:00:00 AM EDT eCW1 ([facility]) [address] [address] 09/04/2019 12:00:00 AM EST eCW1 ([facility]) [address] [address] 08/03/2019 12:00:00 AM EST eCW1 ([facility]) Medications Medication Brand Name Start Date Product Form Dose Route Admi nistrative Instructions Pharmacy Instructions Status Indications Reaction Description Data Source(s) normal saline flush 0.9 % injection 3 mL [id number] 08/02/2020 02:00:00 PM EST 3 mL Intravenous active 3 mL , Intravenous, Every 8 hours (scheduled), First dose on Wed08/02/20 at 1400, Pre-op
Rapid push positive pressure flushing shall be performed with a 10 cc normal saline syringe to check the PATENCY of a PIV site prior to any infusion therapy initiation unless resistance is met.
[facility] Medication administered onsite Acetaminophen 325 MG Oral Tablet acetaminophen (TYLENO L) 325 MG tablet 650 mg acetaminophen (TYLENOL) 325 MG tablet 650 mg 08/02/2020 01:15:35 PM EST 650 mg Oral active 650 mg, Or al, Every 4 hours PRN, mild pain (1-3), Starting Wed08/02/20 at 1315
"Maximum dose of acetaminophen is 4,000 mg from all sources in 24 hours."
[facility] Medication administered onsite ondansetron (ZOFRAN) injection 32489-713-73 08/02/2020 12:25:01 PM EST active As needed, Starting Wed at 1225, Intra-Procedure [facility] Medication administered onsite protamine injection [id number] 08/02/2020 12:13:09 PM EST active As needed, Starting Wed08/02/20 at 1213, Intra-Procedur e [facility] Medication administered onsite 1 ML heparin sodium, porcine 1000 UNT/ML Injection hep tiki (porcine) injection heparin (porcine) injection 08/02/2020 11:30:41 AM EST active As needed, Starting Wed08/02/20 at 1130, Intra-Procedure [facility] Medication administered onsite lidocaine (PF) (XYLOCAINE-MPF) 1 % injection [id number] 02/2021 10:55:26 AM EST active As needed, Start ing Wed08/02/20 at 1055, Intra-Procedure [facility] Medication administered onsite 2 ML Midazolam 1 MG/ML Injection midazolam (VERSED) in jection midazolam (VERSED) injection 08/02/2020 10:46:15 AM EST active As needed, Starting Wed08/02/20 at 1046, Intra-Procedure [facility] Medication administered onsite fentaNYL Citrate (PF) (SUBLIMAZE) injection [id number] 08/02/2020 10:46:02 AM EST active As neede d, Starting Wed08/02/20 at 1046, Intra-Procedure [facility] Medication administered onsite 25 mg 07/04/2020 [...] tablet (25 mg total) by mouth daily [facility] . UNIT 03/20/2020 12:00:00 AM EDT [...] 12:00:00 AM EST active 1 tablet [facility] 25 mg 08/03/2019 12:00:00 AM EST [...] ES T suspended 1 tablet eCW1 ([facility]) Amoxicillin 875 MG / Clavulanate 125 MG Oral Tablet Amoxicillin-Pot Clavulanate 875-125 MG Amoxicillin-Pot Clavulanate 875-125 MG 08/03/2019 12:00:00 AM ES T active 1 tablet [facility]CW[facility]) 25 mg 08/03/2019 12:00:00 AM EST tablet 30 TAKE ONE TABLET BY MOUTH EVERY DAY WITH 50MG TABLET TAKE ONE TABLET BY MOUTH EVERY DAY WITH 50MG TABLET SO LD: 10/04/2019 [facility] Sertraline 25 MG Oral Tablet Sertraline HCl 25 MG Sertraline HCl 25 MG 08/03/2019 12:00:00 AM EST 1.0 {tablet} suspende d Sertraline HCl 25 MG [facility]CW1 ([facility]) Amoxicillin 875 MG / Clavulanate 125 MG Oral Tablet Amoxicillin-Pot Clavulanate 875-125 MG Amoxicillin-Pot Clavulanate 875-125 MG 08/03/2019 12:00:00 AM ES T 1.0 {tablet} suspended Amoxicillin-Pot C lavulanate 875-125 MG eCW1 ([facility]) 875-125 mg 08/03/2019 12:00:00 AM EST tablet 14 TAKE ONE TABLET BY MOUTH EVERY 12 HOURS FOR 7 DAYS TAKE ONE TABLET BY MOUTH EVERY 12 HOURS FOR 7 DAYS SOLD: 08/06/2019 [facility] Sertraline 25 MG Oral Tablet Sertraline HCl 25 MG Sertraline HCl 25 MG 08/03/2019 12:00:00 AM EST active 1 tablet [facility]CW1 [facility]) 50 mg 05/16/2019 12:00:00 AM EDT [...] 25 MG tablet 08/01/2018 12:00:00 AM EST a borted [facility] Sertraline 50 MG Oral Tablet sertraline (ZOLOFT) 50 MG tablet sertraline (ZOLOFT) 50 MG tablet 07/11/2018 12:00:00 AM EST 50 mg Oral aborted Take 50 mg by mouth daily [facility] Insurance Providers Payer name Policy type / Coverage type Policy ID Covered constitution party ID Covered constitution party's relationship to sandoval Policy Sandoval Plan Information R [facility] [id number] UMR [id number] UMR [id number] Spo [id number] INSURANCE COVID-19 COVID Nereida C OVID INSURANCE COVID-19 [id number] UMR [id number] R [id number] Nereida [id number] UMR [id number] Nereida [id number] R O [id number] S [id number] [facility] [id number] ANSI-Commercial [id number] ANSI-Commercial [id number] ANSI-Commercial [id number] [employer] [id number] HU2 [id number] ANSI-Commercial [id number] ANSI-Commercial [id number] ANSI-Commercial [id number] [facility] (O) [id number] Self [id number] ANSI-Commercial [id number] ANSI-Commercial [id number] [facility] [id number] HU2 [id number] [facility] Commercial [id number] Self [id number] [facility] Commercial [id number] Self [id number] [facility] [id number] HU2 [id number] [employer] [id number] ANSI-Commercial [id number] [employer] PPO O [id number] S [id number] [employer] [id number] 2 [id number] Problems, Conditions, and Diagnoses Code Display Name Description Problem Type Effective Dates Data Source(s) I47.1 Supraventricular tachycardia Supraventricular tachycar lambert [id number] 07/11/2020 12:00:00 AM EST [facility] J32.0 [id number] Right maxillary sinusitis Problem 08/03/2019 12:00:00 AM EST [facility]) J32.0 [id number] Right maxillary sinusitis Problem 08/03/2019 12:00:00 AM EST [facility]CW1 ([facility]) I47.1 Supraventricular tachycardia Supraventricular tachycar lambert Diagnosis 08/02/2020 09:53:00 AM EST [facility] U07.1 COVID-19 COVID-19 Diagnosis 07/29/2020 09:05:47 AM ES T [facility] Surgeries/Procedures Procedure Description Date Indications Data Source(s) MRI Upper Extremity Any Joint 08/14/2020 12:00:[address] [facility] ([facility]) CLOSED TX RADIAL HEAD/NECK FX W/O MANIPULATION 021 12:00:00 AM EST [facility] ([facility]) RADEX ELBOW COMPLETE MINIMUM 3 VIEWS 08/06/2020 12:00: 00 AM EST [facility] ([facility]) RADEX ELBOW COMPLETE MINIMUM 3 VIEWS 08/06/2020 12:00: 00 AM EST [facility] ([facility]) EP STUDY EP STUDY Routine 08/02/2020 12:22 PM EST Supraventricular tachycardia 08/02/2020 05:22:24 PM EST Supr aventricular tachycardia [facility] Supraventricular tachycardia POCT I-STAT BETA HCG POCT I-STAT BETA HCG Routine 08/02/2020 10:27 AM EST 08/02/2020 03:27:00 PM EST [facility] Results ID Date Data Source [id number] 08/02/2020 12:39:19 PM EST [facility] Name Value Range Interpretation Code Description Data Daphne rce(s) Supporting Document(s) &PDF [facility] [id number] [file] [id number]== ID Date Data Source [id number] 08/02/2020 10:43:52 AM EST [facility] INFORMATIONPatient MRN Name Date of Age Gend*PT [id number] aRdha Fortune I 1970 49 years F HOPPT Location Admission Date/Time Visit ID Attending ProviderCV-31 08/02/20 0953 --- Rajeev Reid MD([id number]) EPI ID CSN Admitting Provider [id number] Rajeev Smith MD([id number])H&P reviewed. The patient was examined and there are no changes to the H&P.Rajeev Smith MD10:43 AM Name Value Range Interpretation Code Description Data Daphne rce(s) Supporting Document(s) ID Date Data Source [id number] 08/02/2020 10:41:33 AM EST [facility] Name Value Range Interpretation Code Description Data Daphne rce(s) Supporting Document(s) POC [facility] <5.0 IU/L [facility] odessa C PENNY INTERPRETATION:<5.0 NEGATIVE5.0- 25.0 INDETERMINATE>25.0 POSITIVELEVELS BETWEEN 5 AND 25 IU/L MAY INDICATEEARLY AND SHOULD BE REPEATED ZARINA BLOOD SAMPLE AFTER 48 HOURS.PERFORMED BY [facility] CLINICAL STAFF ID Date Data Source [id number] 07/29/2020 09:00:00 AM EST [facility] Name Value Range Interpretation Code Description Data Daphne rce(s) Supporting Document(s) SARS coronavirus 2 RNA [facility] This lab was ordered by [facility] and reported by [employer]. ID Date Data Source [id number] 07/30/2020 08:07:42 PM EST [facility] Name Value Range Interpretation Code Description Data Daphne rce(s) Supporting Document(s) SARS-COV-2 [facility] [place] Not DetectedReference range: Not Detecte d This nucleic acid amplification test was developed and its performance characteristics determined by [employer]. Nucleic acid amplification tests include PCR and [...] detected) result in this assay. Performed At: [facility] [place], [place] [id number] Galen Honeycutt PhD Ph:[phone] ID Date Data Source [id number] 07/03/2020 10:56:51 AM EST [facility] NT INFORMATIONPatient MRN Name Date of Age Gend*PT [id number] Radha Fortune 1970 49 years F ---PT Location Admission Date/Time Visit ID Attending Provider --- --- --- --- EPI ID CSN Admitting Provider [id number] ---[facility] [id number] [facility], [address] (First Floor)[place], [place] [address]Ur.: Fax: Fatient: Radha Fortune : 1970Date: 07/03/20CARDIOLOGY ELECTROPHYSIOLOGY TELEMEDICINE CONSULTPatient was identified by name and date of .Verbal consent was obtained from the patient for this telemedicine visit.Patient is aware of the risks, limitations, and benefits of a telemedicinevisit.This telemedicine assessment was conducted remotely with the assistance of[employer] communication technology. Telephone Only Codes 46786: 21-30 minutesof medical discussion: Telephone Only .Subjective:I [...] risksand benefitsFollow Up ablationSignature: Rajeev Reid MD, FAC, RSCardiac Electrophysiology and Arrhythmia ServiceDate: July 03, 2020Time: 10:45 AMThis document or parts of this document, were dictated using [employer]. A reasonable attempt at proofreading has been made to minimize errors.Please call with any questions or corrections. Name Value Range Interpretation Code Description Data Daphne rce(s) Supporting Document(s) Procedure Social History Code Duration Value Status Description Data Source(s ) Alcohol intake 08/02/2020 12:00:00 AM EST No completed [facility] Smoking 08/02/2020 12:00:00 AM EST Never smoker completed Never [facility] Alcohol intake 07/02/2020 12:00:00 AM EST No completed [facility] Smoking 07/02/2020 12:00:00 AM EST Never smoker completed Never [facility] Smoking 02/05/2020 12:00:00 AM EDT Never Smoker completed Never [facility]CW1 ([facility] Vital Signs ID Date Data Source UNK Name Value Range Interpretation Code Description Data Source(s) Body temperature 36.39 Rita 36.39 Rita [facility] Heart rate 73 /min 73 /min [facility] Diastolic blood pressure 78 mm[Hg] 78 mm[Hg] [facility] Systolic blood pressure 112 mm[Hg] 112 mm[Hg] S [facility] Oxygen saturation in Arterial blood by Pulse oximetry 98 % 98 % [facility] Respiratory rate 18 /min 18 /min [facility] Body mass index (BMI) [Ratio] 22.81 kg/m2 22.81 kg/m2 [facility] Body weight 68.04 kg 68.04 kg [facility] Body height 172.7 cm 172.7 cm [facility] Diastolic blood pressure 68 mm[Hg] 68 mm[Hg] [facility]CW[facility] ([facility] Systolic blood pressure 112 mm[Hg] 112 mm[Hg] e CW1 ([facility]) Body temperature 97.2 [degF] 97.2 [degF] [facility]CW[facility] ( [facility] Respiratory rate 18 /min 18 /min eCW1 ([facility]) Heart rate 91 /min 91 /min eCW1 ([facility]) Body mass index (BMI) [Ratio] 26.24 kg/m2 26.24 kg/m2 eCW1 ([facility]) Body height 68 [in_i] 68 [in_i] eCW1 ([facility]) Body weight 172.6 [lb_av] 172.6 [lb_av] eCW1 ([facility]) Diastolic blood pressure 68 mm[Hg] 68 mm[Hg] eCW1 ([facility]) Systolic blood pressure 114 mm[Hg] 114 mm[Hg] e CW1 ([facility]) Body temperature 97 [degF] 97 [degF] eCW1 ([facility]) Respiratory rate 18 /min 18 /min eCW1 ([facility]) Heart rate 83 /min 83 /min eCW1 ([facility]) Body mass index (BMI) [Ratio] 27.15 kg/m2 27.15 kg/m2 eCW1 ([facility]) Body height 68 [in_us] 68 [in_us] eCW1 ([facility]) Body weight Measured 178.6 [lb_av] 178.6 [lb_av ] eCW1 ([facility]) Diastolic blood pressure 64 mm[Hg] 64 mm[Hg] eCW1 ([facility]) Systolic blood pressure 114 mm[Hg] 114 mm[Hg] e CW1 ([facility]) Body temperature 97 [degF] 97 [degF] eCW1 ([facility]) Respiratory rate 18 /min 18 /min eCW1 ([facility]) Heart rate 91 /min 91 /min eCW1 ([facility]) Body mass index (BMI) [Ratio] 26.24 kg/m2 26.24 kg/m2 eCW1 ([facility]) Body height 68 [in_us] 68 [in_us] eCW1 ([facility]) Body weight Measured 172.6 [lb_av] 172.6 [lb_av ] eCW1 [facility]) Patient Treatment Plan of Care Planned Activity Planned Date Details Description Data Source (s) 24 HR metoprolol succinate 25 MG Extended Release Oral Tablet 07/03/2020 12:00:00 AM EST [facility] Sertraline 25 MG Oral Tablet 08/03/2019 12:00:00 AM EST [facility]CW1 ([facility]) Amoxicillin 875 MG / Clavulanate 125 MG Oral Tablet 08/03/19 12:00:00 AM EST eCW1 ([facility]) Sertraline 25 MG Oral Tablet 08/03/2019 12:00:00 AM EST eCW1 ([facility]) Sertraline 25 MG Oral Tablet 08/01/2018 12:00:00 AM EST [facility] Sertraline 50 MG Oral Tablet 07/11/2018 12:00:00 AM EST [facility]
[2020-08-25 20:03] LABS: HCG, SERUM QUALITATIVE NEGATIVE (NEGATIVE)
[2020-08-25 20:07] LABS: BLOOD UREA NITROGEN 11 MG/DL (7-18); CALCIUM LEVEL 8.8 MG/DL (8.5-10.1); CARBON DIOXIDE LEVEL 28 MEQ/L (21-32); CHLORIDE LEVEL 102 MEQ/L (98-107); CK-MB VALUE MASS < 1.0 NG/ML (<3.6); CPK CREATINE PHOSPHOKINASE 101 U/L (26-192); CREATININE FOR GFR 0.94 MG/DL (0.55-1.30); GLOMERULAR FILTRATION RATE > 60.0 (>58); GLUCOSE, FASTING 133 MG/DL (70-100); MB/CK RELATIVE INDEX 0.99 (< OR =4); POTASSIUM SERUM 3.3 MEQ/L (3.5-5.1); SODIUM LEVEL 140 MEQ/L (136-145); TROPONIN I < 0.02 NG/ML (< 0.10)
--- NOTE | 2020-08-25 20:19 | REPVR ---
PROCEDURE INFORMATION: Exam: XR Chest, 1 View Exam date and time: 08/25/2020 8:05 PM Age: 49 years old Clinical indication: Other: CVA ? TECHNIQUE: Imaging protocol: XR of the chest Views: 1 view. COMPARISON: No relevant prior studies available. FINDINGS: Lungs: A few nodules are identified within the left upper lung zone, the largest measuring 1.2 cm. Otherwise, there is no visualized lung consolidation. Pleural spaces: No pleural effusion. No pneumothorax. Heart/Mediastinum: No cardiomegaly. Bones/joints: Hypertrophic degenerative changes are noted involving the spine. IMPRESSION: 1. A few nodules are identified within the left upper lung zone, the largest measuring 1.2 cm. A nonemergent chest CT is recommended. 2. Otherwise, there is no visualized lung consolidation. Electronically signed by: Kobe Bansal On 08/25/2020 20:18:26 PM
--- NOTE | 2020-08-25 21:05 | ECGEPIP ---
[facility] - ED Test Date: 2020-08-25 Pat Name: JOSE FORTUNE Department: Room: - Gender: Female [employer] Sales Specialist: JOEL : 1970 Requested By: PATRICIA Flores Order Number: [id number] Reading MD: Isabel Jolley Measurements Intervals [place] Rate: 63 P: 30 KS: 148 QRS: 19 QRSD: 92 T: 16 QT: 420 QTc: 433 Interpretive Statements SINUS RHYTHM No prior Electronically Signed on 08-25-2020 21:05:15 EST by Isabel Jolley
--- NOTE | 2020-08-25 23:12 | REPVR ---
PROCEDURE INFORMATION: Exam: MR Head Without Contrast Exam date and time: 08/25/2020 10:34 PM Age: 49 years old Clinical indication: Weakness, facial and other: RT sided facial droop; Patient HX: PT states RT sided facial droop first noticed at dinner at 6pm tonight. PT also states dry RT eye, numbness in the tip of her tongue and taste disturbance. ; Additional info: R/O stroke TECHNIQUE: Imaging protocol: MR of the head without contrast. COMPARISON: MRA BRAIN W/O CONTRAST 04/01/2019 10:58 AM FINDINGS: Brain: There is no restricted diffusion within the brain to suggest an acute infarct. No significant white matter disease. No cerebral edema. No magnetic susceptibility intracerebral blood products/hemosiderin visualized. Cerebral ventricles: No ventriculomegaly. Bones/joints: Unremarkable, as visualized. Paranasal sinuses: Minimal mucosal thickening of scattered ethmoid air cells. Mastoid air cells: No mastoid effusion. Orbital cavity: Refer to the orbit MRI report. Soft tissues: Unremarkable, as visualized. IMPRESSION: 1. No acute intracranial abnormality. 2. Minimal paranasal sinus disease. PROCEDURE INFORMATION: Exam: MR Orbit Without Contrast Exam date and time: 08/25/2020 10:34 PM Age: 49 years old Clinical indication: Weakness, facial and other: RT sided facial droop; Patient HX: PT states RT sided facial droop first noticed at dinner at 6pm tonight. PT also states dry RT eye, numbness in the tip of her tongue and taste disturbance. ; Additional info: R/O stroke TECHNIQUE: Imaging protocol: MR Orbit was performed without intravenous contrast. COMPARISON: MRA BRAIN W/O CONTRAST 04/01/2019 10:58 AM FINDINGS: Orbits: Motion artifact slightly limits evaluation of the optic globes without a definitive acute abnormality. The conal muscles of the orbits are normal in size. No orbital mass effect is visualized involving the orbits on this noncontrast study. No preseptal or postseptal swelling is visualized bilaterally. The lacrimal glands are normal in size. Paranasal sinuses: Minimal mucosal thickening of scattered ethmoid air cells. No air-fluid levels. Soft tissues: See above. IMPRESSION: 1. No definitive acute intraorbital abnormality visualized on this noncontrast study. 2. Minimal paranasal sinus disease. Electronically signed by: Kobe Bansal On 08/25/2020 23:11:43 PM
[2020-08-25] MEDS ORDERED: POTASSIUM CHLORIDE 10 MEQ SR TABLET PO ONE (23:15)
[2020-08-25] MEDS ORDERED: PRED20TA PO (23:53)
[2020-08-25] MEDS ORDERED: POLYOPD OD (23:53)
[2020-08-25] MEDS ORDERED: VALA1TAB5 PO (23:53)
[2020-08-26] MEDS ORDERED: predniSONE 20 MG TAB PO ONE
[2020-08-26 00:13] VITALS: BP 115/68
[2020-08-28 14:09] LABS: Lyme Disease IgG/IgM Antibodie <0.91 ISR (0.00-0.90); Lyme Disease IgM Ab Quantitati <0.80 index (0.00-0.79)
== END 2020-08-26 00:19 | disposition home or self-care (01) ==
LOC: M ED 19:08
DX: G51.0 Bell's palsy (principal); R91.8 Other nonspecific abnormal finding of lung field; Z79.899 Other long term (current) drug therapy
CPT/HCPCS: 36415; 70450; 70551; 71045; 80048; 82550; 82553; 84484; 84703; 85025; 85730; 86617; 93005; 93041; 99285; Q9967

== ENCOUNTER → 2020-09-11 | Outpatient (REF) | payer OTHER ==
[~2020-09-11] MED LIST: IBUP200T45 PO; POLYOPD OD; PRED20TA PO; PSEU30TA85 PO; VALA1TAB5 PO
[2020-09-11 13:55] LABS: ALT/SGPT 40 U/L (12-78); BILIRUBIN,TOTAL 0.4 MG/DL (0.2-1.0); BLOOD UREA NITROGEN 18 MG/DL (7-18); CALCIUM LEVEL 9.1 MG/DL (8.5-10.1); CARBON DIOXIDE LEVEL 30 MEQ/L (21-32); CHLORIDE LEVEL 106 MEQ/L (98-107); CHOLESTEROL LEVEL 235 MG/DL (<200); CHOLESTEROL RISK RATIO 3.507 (<5); CREATININE FOR GFR 0.88 MG/DL (0.55-1.30); FREE T4 1.22 NG/DL (0.76-1.46); GLOMERULAR FILTRATION RATE > 60.0 (>58); GLUCOSE, FASTING 92 MG/DL (70-100); HDL CHOLESTEROL 67 MG/DL (>40); LDL CHOLESTEROL 152 MG/DL (<100); NON-HDL-C 168 MG/DL; POTASSIUM SERUM 4.1 MEQ/L (3.5-5.1); SODIUM LEVEL 143 MEQ/L (136-145); TOTAL PROTEIN 7.3 GM/DL (6.4-8.2); TRIGLYCERIDES LEVEL 81 MG/DL (<150)
== END ==
LOC: M SFHCADAM 09:57
PROVIDERS: ATTEND Family Medicine
DX: Z00.00 Encounter for general adult medical examination without abnormal findings (principal); F41.9 Anxiety disorder, unspecified

== ENCOUNTER → 2020-09-13 | Outpatient (REF) | payer OTHER ==
[2020-09-13 17:14] LABS: BASO # 0.1 10^3/uL (0.0-0.2); BASO % 0.9 % (0.0-1.0); EOS # 0.1 10^3/uL (0.0-0.5); EOS % 1.9 % (0.0-3.0); HEMATOCRIT 40.9 % (36.0-47.0); LYMPH # 1.2 10^3/uL (1.5-5.0); LYMPH % 21.3 % (24.0-44.0); MEAN CORPUSCULAR HGB CONC 31.8 g/dl (32.0-36.5); MEAN CORPUSCULAR VOLUME 97.4 fl (80.0-96.0); MONO # 0.4 10^3/uL (0.0-0.8); MONO % 6.9 % (2.0-8.0); NEUTROPHILS # 3.9 10^3/uL (1.5-8.5); NEUTROPHILS % 68.6 % (36.0-66.0); PLATELET COUNT, AUTOMATED 269 10^3/uL (150-450); WHITE BLOOD COUNT 5.7 10^3/uL (4.0-10.0)
[2020-09-13 17:27] LABS: CHOLESTEROL RISK RATIO 3.758 (<5)
== END ==
LOC: M SFHCADAM 13:36
PROVIDERS: ATTEND Family Medicine
DX: Z00.00 Encounter for general adult medical examination without abnormal findings (principal)

== ENCOUNTER → 2022-02-13 | Outpatient (CLI) | payer OTHER ==
[~2022-02-13] MED LIST changes: -IBUP200T45 PO; +IBUP200T46 PO; -PSEU30TA85 PO; +PSEU30TA86 PO
== END ==
LOC: M WHC 08:12
PROVIDERS: ATTEND Family Medicine
DX: Z12.31 Encounter for screening mammogram for malignant neoplasm of breast (principal)

== ENCOUNTER → 2022-06-11 | Outpatient (CLI) | payer OTHER ==
[2022-06-11 08:34] LABS: BASO # 0.1 10^3/uL (0.0-0.2); BASO % 0.9 % (0.0-1.0); EOS # 0.1 10^3/uL (0.0-0.5); EOS % 2.4 % (0.0-3.0); HEMATOCRIT 39.4 % (36.0-47.0); HEMOGLOBIN 12.5 g/dl (12.0-15.5); LYMPH # 1.2 10^3/uL (1.5-5.0); LYMPH % 22.6 % (24.0-44.0); MEAN CORPUSCULAR HEMOGLOBIN 29.5 pg (27.0-33.0); MEAN CORPUSCULAR HGB CONC 31.7 g/dl (32.0-36.5); MEAN CORPUSCULAR VOLUME 92.9 fl (80.0-96.0); MONO # 0.4 10^3/uL (0.0-0.8); MONO % 7.3 % (2.0-8.0); NEUTROPHILS # 3.7 10^3/uL (1.5-8.5); NEUTROPHILS % 66.6 % (36.0-66.0); PLATELET COUNT, AUTOMATED 289 10^3/uL (150-450); RED BLOOD COUNT 4.24 10^6/uL (4.00-5.40); WHITE BLOOD COUNT 5.5 10^3/uL (4.0-10.0)
[2022-06-11 09:14] LABS: ALT/SGPT 56 U/L (7.0-40); BILIRUBIN,TOTAL 0.4 MG/DL (0.3-1.2); BLOOD UREA NITROGEN 27 MG/DL (9-23); CARBON DIOXIDE LEVEL 28 MMOL/L (20-31); CHLORIDE LEVEL 103 MMOL/L (98-107); CREATININE FOR GFR 0.79 MG/DL (0.55-1.30); GLOMERULAR FILTRATION RATE > 60.0 (>51); GLUCOSE, FASTING 97 MG/DL (60-100); POTASSIUM SERUM 4.5 MMOL/L (3.5-5.1); SODIUM LEVEL 139 MMOL/L (136-145); THYROID STIMULATING HORMONE 0.784 uIU/ML (0.55-4.78); TOTAL PROTEIN 7.2 G/DL (5.7-8.2)
== END ==
LOC: M LAB 07:50
PROVIDERS: ATTEND Family Medicine
DX: Z00.00 Encounter for general adult medical examination without abnormal findings (principal); Z79.899 Other long term (current) drug therapy

== ENCOUNTER → 2022-07-15 | Outpatient (REF) | payer OTHER | LOC: M PLALAB 16:50 | PROVIDERS: ATTEND Advanced Practice Midwife | DX: Z12.4 Encounter for screening for malignant neoplasm of cervix (principal) | CPT/HCPCS: 87624; G0123 ==

== ENCOUNTER → 2022-09-14 | Outpatient (CLI) | payer OTHER ==
[~2022-09-14] MED LIST changes: +ALBU8.5H INH; +FLUO40CA PO; +VITMTA PO
== END ==
LOC: M LABSMTC 10:18
PROVIDERS: ATTEND Anesthesiology
DX: Z01.812 Encounter for preprocedural laboratory examination (principal); Z11.52 Encounter for screening for COVID-19

== ENCOUNTER 2022-09-17 09:38 | Day surgery (SDC) | payer OTHER ==
[~2022-09-17] VITALS: Ht 172.7 cm; Wt 79.3 kg
[~2022-09-17 09:38] MED LIST changes: +NS 1,000 ML IV ONE
[2022-09-17] MEDS ORDERED: propofoL 200 MG/20 ML VIAL As Ordered ONE (11:18)
[2022-09-17] MEDS ORDERED: LIDOCAINE 2% 100MG/5ML SDV (FOR ANES.) As Ordered ONE (11:18)
[2022-09-17 12:05] VITALS: BP 107/70
== END 2022-09-17 12:10 | disposition home or self-care (01) ==
LOC: M OPP 09:38
PROVIDERS: ATTEND Surgery
DX: Z12.11 Encounter for screening for malignant neoplasm of colon (principal); K64.2 Third degree hemorrhoids; G43.909 Migraine, unspecified, not intractable, without status migrainosus; F32.9 Major depressive disorder, single episode, unspecified; F41.9 Anxiety disorder, unspecified; Z86.69 Personal history of other diseases of the nervous system and sense organs; Z79.899 Other long term (current) drug therapy; Z98.890 Other specified postprocedural states

== ENCOUNTER 2022-12-17 16:06 | Emergency (ER) | payer OTHER ==
[~2022-12-17] VITALS: Ht 172.7 cm; Wt 77.3 kg
[~2022-12-17 16:06] MED LIST changes: +ARTIDRO4 OD; -NS 1,000 ML IV ONE; -POLYOPD OD
[2022-12-17 18:15] VITALS: BP 124/86
[2022-12-17 18:28] LABS: BASO # 0.1 10^3/uL (0.0-0.2); BASO % 0.8 % (0.0-1.0); EOS # 0.1 10^3/uL (0.0-0.5); EOS % 2.2 % (0.0-3.0); HEMATOCRIT 37.7 % (36.0-47.0); LYMPH # 1.3 10^3/uL (1.5-5.0); LYMPH % 20.3 % (24.0-44.0); MEAN CORPUSCULAR HGB CONC 31.8 g/dl (32.0-36.5); MEAN CORPUSCULAR VOLUME 94.3 fl (80.0-96.0); MONO # 0.5 10^3/uL (0.0-0.8); MONO % 7.7 % (2.0-8.0); NEUTROPHILS # 4.5 10^3/uL (1.5-8.5); NEUTROPHILS % 68.7 % (36.0-66.0); PLATELET COUNT, AUTOMATED 263 10^3/uL (150-450); WHITE BLOOD COUNT 6.5 10^3/uL (4.0-10.0)
[2022-12-17 18:48] LABS: BLOOD UREA NITROGEN 24 MG/DL (9-23); CALCIUM LEVEL 8.8 MG/DL (8.5-10.1); CARBON DIOXIDE LEVEL 26 MMOL/L (20-31); CHLORIDE LEVEL 107 MMOL/L (98-107); CK-MB VALUE MASS < 1.0 NG/ML (<3.6); CPK CREATINE PHOSPHOKINASE 92 U/L (34-145); CREATININE FOR GFR 0.86 MG/DL (0.55-1.30); GLOMERULAR FILTRATION RATE > 60.0 (>51); GLUCOSE, FASTING 109 MG/DL (60-100); MB/CK RELATIVE INDEX 1.08 (< OR =4); POTASSIUM SERUM 4.1 MMOL/L (3.5-5.1); SODIUM LEVEL 140 MMOL/L (136-145)
[2022-12-17 18:51] LABS: THYROID STIMULATING HORMONE 0.671 uIU/ML (0.55-4.78)
== END 2022-12-17 19:50 | disposition home or self-care (01) ==
LOC: M ED 16:06
DX: R00.2 Palpitations (principal); R53.83 Other fatigue; I47.1 Supraventricular tachycardia; I45.6 Pre-excitation syndrome; G40.909 Epilepsy, unspecified, not intractable, without status epilepticus; G51.0 Bell's palsy; Z79.899 Other long term (current) drug therapy

== ENCOUNTER → 2023-06-22 | Outpatient (CLI) | payer OTHER | LOC: M WHC 15:21 | PROVIDERS: ATTEND Family Medicine | DX: Z12.31 Encounter for screening mammogram for malignant neoplasm of breast (principal) ==

== ENCOUNTER → 2023-07-06 | Outpatient (CLI) | payer OTHER | LOC: M WHC 15:23 | PROVIDERS: ATTEND Family Medicine | DX: Z12.31 Encounter for screening mammogram for malignant neoplasm of breast (principal) | CPT/HCPCS: 77065; G0279 ==

== ENCOUNTER → 2025-05-28 | Outpatient (REF) | payer OTHER ==
[~2025-05-28] MED LIST changes: -PSEU30TA86 PO; +PSEU30TA87 PO
== END ==
LOC: M SFHCADAM 13:02
PROVIDERS: ATTEND Family Medicine
DX: R05.1 Acute cough (principal)